=== PATIENT | female | born 1955 | race Two or more races ===

== ENCOUNTER 2020-12-24 08:45 | Outpatient (CLI) | payer OTHER ==
[~2020-12-24 08:45] MED LIST: SINGULAIR10 MG; SYMBICORT 16010.2 GM
== END 2020-12-24 08:48 | disposition home or self-care (01) ==
LOC: SONOGRAMA 08:45
PROVIDERS: ATTEND Pathology Anatomic Pathology
DX: D34 Benign neoplasm of thyroid gland (principal); E04.8 Other specified nontoxic goiter; E04.1 Nontoxic single thyroid nodule

== ENCOUNTER 2021-03-21 07:41 | Outpatient (CLI) | payer OTHER | END 2021-03-21 07:44 | disposition home or self-care (01) | LOC: NUCLEAR 07:41 | PROVIDERS: ATTEND Internal Medicine Cardiovascular Disease | DX: I20.8 Other forms of angina pectoris (principal); E78.00 Pure hypercholesterolemia, unspecified | CPT/HCPCS: 78452; 93017; A9500 ==